=== PATIENT | male | born 1955 ===

== ENCOUNTER 2023-08-05 12:51 | Outpatient (CLI) | payer MEDICARE, SELFPAY | END 2023-08-05 12:52 | disposition home or self-care (01) | LOC: ANHBWCAUD 12:52 | PROVIDERS: PCP Internal Medicine; Visit Provider Otolaryngology | DX: H90.3 Sensorineural hearing loss, bilateral (principal); Z86.69 Personal history of other diseases of the nervous system and sense organs; H81.10 Benign paroxysmal vertigo, unspecified ear | CPT/HCPCS: 92557; 92567 ==